=== PATIENT | female | born 1975 | race American Indian/Alaskan Native ===

== ENCOUNTER 2020-04-24 12:41 | Outpatient (CLI) | payer BC ==
--- NOTE | 2020-04-24 18:05 | Ultrasound Report ---
BILATERAL DIGITAL DIAGNOSTIC MAMMOGRAM WITH CAD 04/24/2020 LEFT LIMITED BREAST ULTRASOUND INDICATION: N63.22Unspecified lump in the left breast, upper inner quadrant TECHNIQUE: Digital left mammographic imaging was performed. Spot compression views were obtained. [facility]. This examination was interpreted with the benefit of Computer-Aided D etection (CAD) analysis. COMPARISON: Last mammogram available for comparison is 03/18/2025. This was prior to the patient's redu ction mammoplasty in 2014. FINDINGS: Breast Density: The breasts are heterogeneously dense, which may obscure small masses. MAMMOGRAPHIC FINDINGS: There is no evidence of dominant mass, suspicious calcifications or architectu ral distortion in the right breast. Interval change in the overall appearance of the breast is due to interval reduction mammoplasty. In the upper inner quadrant of the left breast corresponding to the area of palpable abnormality, the re are multiple round lucent masses consistent with oil cysts/fat necrosis. ULTRASOUND FINDINGS: Targeted ultrasound evaluation was performed of the area of interest. Sonograp hic evaluation of the upper inner quadrant of the left breast shows numerous cystic areas consistent with oral cyst/fat necrosis. Corresponding to the palpable area, there is a larger masslike area cont aining cluster of hypoechoic nodules measuring 5.7 x 2.8 cm in total. This corresponds to focal area of oil cysts noted on mammogram. IMPRESSION: Left breast palpable lump and mammographic findings appear to be related to fat necrosis/ oil cysts related to reduction mammoplasty. As we have no older mammograms following reduction mammop lasty from 2014, a six-month follow-up left mammogram is suggested to document stability. If there is any clinical concern based on physical exam, an ultrasound-guided biopsy could be performed if carlton ed. Follow up recommendation: Left mammogram 6 month follow-up BI-RADS Category 3: Probably Benign. Followup in 6 months. A "normal" or negative report should not discourage follow up or biopsy of a clinically significant f inding. A written summary of these findings will be mailed to the patient. The patient will be entered into a mammography reporting system which will generate a reminder letter for the patient's next appointmen t at the appropriate interval. According to the [employer], yearly mammograms are recommended starting at age 40 and continuing as long as a woman is in good health. Breast MRI is recommended for women with an valerie roximately 20-25% or greater lifetime risk of breast cancer, including women with a strong family his tory of breast or ovarian cancer and women who have been treated for Hodgkin's disease. Signer Name: Yeni Bhandari MD Signed: 04/24/2020 6:00 PM Workstation Name: [id number]
== END 2020-04-24 12:42 | disposition home or self-care (01) ==
LOC: MAMMO 12:41
PROVIDERS: ATTEND Obstetrics & Gynecology
DX: N63.22 Unspecified lump in the left breast, upper inner quadrant (principal)
CPT/HCPCS: 77066

== ENCOUNTER 2020-10-07 08:05 | Outpatient (CLI) | payer BC ==
--- NOTE | 2020-10-07 09:25 | Mammography Report ---
DIGITAL DIAGNOSTIC MAMMOGRAM WITH CAD WITH TOMOSYNTHESIS, 10/07/2020 CLINICAL INFORMATION / INDICATION: Patient presents for six-month follow-up of probably benign fat ne crosis/postsurgical change in the left breast. ABNORMAL MAMMO R92.8 TECHNIQUE: Digital left mammographic imaging was performed. This examination was interpreted with the benefit of Computer-aided Detection analysis. COMPARISON: Prior mammogram and left breast ultrasound 04/24/2020 and prior mammogram 07/31/2015 FINDINGS: Breast Density: The breasts are heterogeneously dense, which may obscure small masses. No dominant mass or suspicious calcifications in the left breast. There is stable benign post reduction change seen in the left breast, and stable benign fat necrosis/ rim calcified oil cysts at the site of palpable concern in the medial left breast. There has been no significant change compared with the prior examination. IMPRESSION: 1. No suspicious mammographic abnormality identified in the left breast. Stable benign fat necrosis/o il cysts accounts for the area of palpable concern in the left breast. Return to routine screening ma mmogram schedule is recommended. Follow up recommendation: Back to schedule. BI-RADS Category 2: Benign. A "normal" or negative report should not discourage follow up or biopsy of a clinically significant f inding. A written summary of these findings will be mailed to the patient. The patient will be entered into a mammography reporting system which will generate a reminder letter for the patient's next appointmen t at the appropriate interval. According to the [employer], yearly mammograms are recommended starting at age 40 and continuing as long as a woman is in good health. Breast MRI is recommended for women with an valerie roximately 20-25% or greater lifetime risk of breast cancer, including women with a strong family his tory of breast or ovarian cancer and women who have been treated for Hodgkin's disease. Signer Name: Kourtney Morel MD Signed: 10/07/2020 9:20 AM Workstation Name: [id number]
--- NOTE | 2020-10-07 09:55 | Ultrasound Report ---
ULTRASOUND BREAST LEFT LIMITED, 10/07/2020 CLINICAL INFORMATION / INDICATION: Left breast palp lump. Patient presents for six-month follow-up of an area of palpable concern in the left breast previously shown to represent benign fat necrosis/oil cysts. TECHNIQUE: Targeted ultrasound evaluation was performed of the area of interest. COMPARISON: Left diagnostic mammogram same day, and left breast ultrasound 04/24/2020 FINDINGS: Targeted ultrasound of the left breast reveals a stable heterogeneous masslike area in the left breas t 11:00 position located 3 cm from the nipple, currently measuring up to 3.4 x 3.6 x 1.6 cm, previous ly 4.3 x 3.6 x 3.0 cm. This is compatible with benign fat necrosis/oil cysts, as seen mammographicall y. There are additional scattered benign simple and complicated cysts seen in the left breast, the la rgest in the 11:00 position located 7 cm from the nipple measuring up to 1.3 cm. Incidental note is m nadya of several oval circumscribed hypoechoic masses in the 8:00 position located 4 cm from the nipple measuring up to 1.2 cm, and in the 10:00 position located 3 cm from the nipple measuring up to 1.1 c m. These masses are parallel. No internal vascularity is demonstrated. IMPRESSION: 1. Stable benign fat necrosis/oil cysts accounts for the area of palpable concern in the left breast. 2. Incidental oval circumscribed hypoechoic masses in the left breast are probably benign and may ref lect additional areas of fat necrosis or fibroadenomas. Recommend left breast ultrasound in 6 months to ensure stability. Follow up recommendation: Short term follow up in 6 months. BI-RADS Category 3: Probably Benign. Followup in 6 months. A normal or "negative" report should not preclude biopsy or follow-up of a clinically suspicious find ing. Signer Name: Kourtney Morel MD Signed: 10/07/2020 9:50 AM Workstation Name: [id number]
== END 2020-10-07 08:06 | disposition home or self-care (01) ==
LOC: SPVWC 08:05
PROVIDERS: ATTEND Surgery
DX: N60.02 Solitary cyst of left breast (principal)
CPT/HCPCS: 76642; 77065; G0279

== ENCOUNTER 2021-03-20 08:18 | Outpatient (CLI) | payer BC ==
--- NOTE | 2021-03-20 10:36 | Mammography Report ---
DIGITAL SCREENING MAMMOGRAM WITH CAD, 03/20/2021 CLINICAL INFORMATION / INDICATION: Routine screening mammography. SCREENING MAMMO TECHNIQUE: Digital bilateral 2D mammography was obtained in the craniocaudal and mediolateral obliqu e projections. This examination was interpreted with the benefit of Computer-Aided Detection analysis . COMPARISON: 10/07/2020, 04/24/2020, 03/18/2015 FINDINGS: Breast Density: The breasts are heterogeneously dense, which may obscure small masses. No dominant mass, suspicious calcifications, or architectural distortion in either breast. Postreduction changes are noted. There are stable there is fat necrosis/orbital cyst on the left. IMPRESSION: No mammographic evidence of malignancy. Follow up recommendation: Routine yearly BI-RADS Category 2: Benign. A "normal" or negative report should not discourage follow up or biopsy of a clinically significant f inding. A written summary of these findings will be mailed to the patient. The patient will be entered into a mammography reporting system which will generate a reminder letter for the patient's next appointmen t at the appropriate interval. The [employer] recommends yearly mammograms starting at age 40 and continuing as l gilberto as a woman is in good health. Breast MRI is recommended for women with an approximate 20-25% or greater lifetime risk of breast cancer, including women with a strong family history of breast or ova earline cancer or who have been treated for Hodgkin's disease. Signer Name: Noel Pablo MD Signed: 03/20/2021 10:31 AM Workstation Name: [id number]
== END 2021-03-20 08:19 | disposition home or self-care (01) ==
LOC: SPVWC 08:18
PROVIDERS: ATTEND Surgery
DX: Z12.31 Encounter for screening mammogram for malignant neoplasm of breast (principal)
CPT/HCPCS: 77067